=== PATIENT | female | born 1960 | race Caucasian/White ===

== ENCOUNTER 2016-05-29 08:23 | Emergency (ER) | payer MEDICAID, MEDICARE ==
[~2016-05-29] VITALS: Ht 167.6 cm; Wt 60.0 kg
[~2016-05-29 08:23] MED LIST: ALPR0.5T99 PO; AMLO5 PO; KEPP750T; MORP1CAP; MS C15TA7 PO; TAB-TAB PO
[2016-05-29 08:44] VITALS: BP 183/108; PULSE 78; RESP 20; TEMP 98; O2SAT 95
[2016-05-29 09:28] LABS: BASOPHIL # 0.1 TH/MM3 (0-0.2); BASOPHIL % 0.4 % (0.0-2.0); EOSINOPHIL # 0.1 TH/MM3 (0-0.4); EOSINOPHIL % 0.6 % (0.0-4.0); HEMATOCRIT 39.7 % (35.0-46.0); HEMO FLAGS DIFF FINAL; LYMPH % 14.2 % (9.0-44.0); LYMPHOCYTE # 2.2 TH/MM3 (1.0-4.8); MEAN CORPUSCULAR HEMOGLOBIN 30.6 PG (27.0-34.0); MEAN CORPUSCULAR HGB CONC 33.6 % (32.0-36.0); NEUT % 76.8 % (16.0-70.0); PLATELET COUNT 283 TH/MM3 (150-450); RED BLOOD COUNT 4.36 MIL/MM3 (4.00-5.30); RED CELL DISTRIBUTION WIDTH 15.4 % (11.6-17.2); WHITE BLOOD COUNT 15.6 TH/MM3 (4.0-11.0)
[2016-05-29 09:42] LABS: ALT (GPT) 23 U/L (10-53); ANION GAP 9 MEQ/L (5-15); AST (GOT) 26 U/L (15-37); BICARBONATE 24.8 MEQ/L (21.0-32.0); BLOOD UREA NITROGEN 5 MG/DL (7-18); CHLORIDE 113 MEQ/L (98-107); GLOMERULAR FILTRATION RATE 75 ML/MIN (>89); POTASSIUM 3.6 MEQ/L (3.5-5.1); SODIUM (NA) 147 MEQ/L (136-145)
[2016-05-29 09:45] LABS: ALKALINE PHOSPHATASE 138 U/L (45-117); TOTAL BILIRUBIN ADULT 0.5 MG/DL (0.2-1.0)
[2016-05-29 10:56] VITALS: BP 200/100; PULSE 89; RESP 20; O2SAT 99
[2016-05-29 11:18] VITALS: BP 170/98
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
[2016-05-29] MEDS ORDERED: cloNIDine HCL 0.1 MG TAB PO ONE (12:00)
[2016-05-29 12:28] LABS: ACETAMINOPHEN LESS THAN 2.0 MCG/ML (10.0-30.0)
[2016-05-29 14:01] LABS: AMPHETAMINE, URINE NEG (NEG); BARBITURATES, URINE NEG (NEG)
[2016-05-29 14:02] LABS: COCAINE, URINE NEG (NEG)
[2016-05-29 14:05] LABS: BLOOD, URINE NEG (NEG); COMMENT (UR) CULT NOT INDICATED; CULTURE IF INDICATED CULT NOT INDICATED; GLUCOSE,URINE NEG (NEG); KETONE, URINE NEG (NEG); MUCUS URINE FEW /lpf (OCC); NITRITE,URINE NEG (NEG); PH, URINE 5.5 (5.0-8.5); URINE COLOR LIGHT-YELLOW (YELLW/STRAW)
[2016-05-29 14:31] VITALS: BP 131/83; PULSE 77; RESP 18; O2SAT 98
[2016-05-29] MEDS ORDERED: ALPR.5 PO (16:13)
[2016-05-29] MEDS ORDERED: OXYC15TA PO (16:13)
[2016-05-29] MEDS ORDERED: MORP1TAB25 PO (16:13)
[2016-05-29] MEDS ORDERED: KEPP750T PO (16:13)
[2016-05-29 18:22] VITALS: BP 137/78; PULSE 68; RESP 17; O2SAT 100
[2016-05-29] MEDS ORDERED: levETIRAcetam 500 MG TAB PO ONE (20:00)
[2016-05-29] MEDS ORDERED: levETIRAcetam 250 MG TAB PO ONE (20:00)
[2016-05-29 22:35] VITALS: BP 143/84; PULSE 68; RESP 18; O2SAT 99
[2016-05-30 02:24] VITALS: BP 153/89; PULSE 72; RESP 19; O2SAT 97
[2016-05-30 06:32] VITALS: BP 126/76; PULSE 77; RESP 17; O2SAT 98
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
== END 2016-05-30 12:18 | disposition home or self-care (01) ==
LOC: NEDAMB 08:23 → NEPJ 05-30 12:18
DX: F17.210 Nicotine dependence, cigarettes, uncomplicated (principal); I10 Essential (primary) hypertension
CPT/HCPCS: 80053; 80307; 81001; 85025; 99284